=== PATIENT | male | born 1940 | race Caucasian/White ===

== ENCOUNTER → 2017-03-28 | Outpatient (CLI) | payer MEDICARE, OTHER | END | disposition home or self-care (01) | LOC: GMAJ 14:06 | PROVIDERS: ATTEND Family Medicine | DX: Z12.5 Encounter for screening for malignant neoplasm of prostate (principal) ==

== ENCOUNTER → 2017-07-11 | Outpatient (CLI) | payer MEDICARE, OTHER ==
--- NOTE | 2017-07-12 10:35 | RAD ---
EXAM DESCRIPTION: Hand,Left 3 Views CLINICAL HISTORY: 76 years Male, PAIN IN LEFT HAND COMPARISON: None. FINDINGS: 3 views of the left hand were obtained. Bony detail is obscured by artifact from superimposed splint material. There is an obliquely oriented, displaced and angulated third metacarpal diaphyseal fracture without definite intra-articular extension. One shaft width dorsal displacement of the distal fracture fragment. The carpometacarpal joints appear anatomically aligned. No additional displaced metacarpal or other left hand fracture. There is prominent posterior soft tissue swelling with one or 2 tiny calcifications versus foreign bodies in the posterior soft tissues. IMPRESSION: Limited exam due to artifact from superimposed splint material with a displaced and angulated left third metacarpal diaphyseal fracture. If possible, follow-up radiograph without splint material is recommended for further evaluation and to exclude the possibility of additional fracture. Prominent posterior soft tissue swelling with soft tissue calcification versus tiny foreign bodies at the same location. Electronically signed by: Rojelio Torres MD 07/12/2017 10:33 AM CDT
== END ==
LOC: RAD 09:02
PROVIDERS: ATTEND Orthopaedic Surgery
DX: M79.642 Pain in left hand (principal)

== ENCOUNTER → 2017-07-18 | Outpatient (CLI) | payer MEDICARE, OTHER ==
--- NOTE | 2017-07-18 11:41 | RAD ---
EXAM DESCRIPTION: Hand,Left 3 Views CLINICAL HISTORY: S62.225A COMPARISON: July 11, 2017 TECHNIQUE: AP, LATERAL, AND OBLIQUE FINDINGS: Three views of the left hand demonstrate an encircling fiberglass cast. Slightly displaced and foreshortened comminuted fracture of the proximal third metacarpal is evident. Very little change in alignment compared to prior study one week earlier is noted. Minimal angulation and modest dorsal displacement of the distal fragment and less than 1 cm of foreshortening is noted. IMPRESSION: 1. Comminuted fracture of the proximal third metacarpal with mild displacement and angulation and modest foreshortening slightly less than 1 cm. 2. Very little change from previous splinted examination July 11, 2017. Electronically signed by: Jone Moore MD 07/18/2017 11:39 AM CDT
== END | disposition home or self-care (01) ==
LOC: RAD 09:09
PROVIDERS: ATTEND Orthopaedic Surgery
DX: S62.22 Rolando's fracture (principal)

== ENCOUNTER → 2017-07-29 | Outpatient (CLI) | payer MEDICARE, OTHER ==
--- NOTE | 2017-07-29 13:27 | RAD ---
EXAM DESCRIPTION: Hand,Left 3 Views CLINICAL HISTORY: CLOSED FX OF METACARPAL BONE COMPARISON: July 18, 2017 TECHNIQUE: AP, LATERAL, AND OBLIQUE FINDINGS: An encircling fiberglass cast shows no change in alignment with very slight foreshortening of the proximal third metacarpal with a slightly comminuted fracture involving the base and proximal shaft of the bone. Modest volar displacement of the proximal fragment is evident on the oblique and lateral view. IMPRESSION: 1. Initially no change in the appearance of the proximal third metacarpal fracture with slight foreshortening and volar displacement of the proximal fragment. Electronically signed by: Jone Moore MD 07/29/2017 1:25 PM CDT
== END | disposition home or self-care (01) ==
LOC: RAD 09:54
PROVIDERS: ATTEND Orthopaedic Surgery
DX: S62.22 Rolando's fracture (principal)

== ENCOUNTER → 2017-08-05 | Outpatient (CLI) | payer MEDICARE, OTHER ==
--- NOTE | 2017-08-06 11:43 | RAD ---
EXAM DESCRIPTION: Hand,Left 3 Views CLINICAL HISTORY: 76 years,Male,CLOSED FX OF METACARPAL BONE COMPARISON: July 29, 2017 FINDINGS: The left hand demonstrates overlying splint obscures some detail. There is a oblique fracture to the proximal diaphysis of the third metacarpal. But the distal fragment displaced a cortex width to the ulnar aspect in almost a shaft width dorsally. It is stable. No evidence of bony bridging at this time.. Soft tissues appear unremarkable. IMPRESSION: Left hand third digit metacarpal demonstrates a oblique fracture to the proximal aspect of the diaphysis with moderate displacement which is stable. Electronically signed by: Moisés Arshad MD 08/06/2017 11:41 AM CDT
== END | disposition home or self-care (01) ==
LOC: RAD 09:57
PROVIDERS: ATTEND Nurse Practitioner Family
DX: S62.22 Rolando's fracture (principal); N30.01 Acute cystitis with hematuria

== ENCOUNTER → 2017-08-19 | Outpatient (CLI) | payer MEDICARE, OTHER ==
--- NOTE | 2017-08-19 14:40 | RAD ---
EXAM DESCRIPTION: Hand,Left 3 Views CLINICAL HISTORY: FX COMPARISON: August 05, 2017, July 18, 2017 TECHNIQUE: AP, LATERAL, AND OBLIQUE FINDINGS: Three views of the left hand were obtained through an encircling fiberglass cast. The bony margins and fracture line is less distinct with a suggestion of minimal callus formation. Mild ulnar and moderate dorsal offset of the distal third metacarpal fragment is essentially unchanged in comparison to studies back to June with an offset approaching one bone width at the proximal third metacarpal shaft level. New injuries or fractures are not apparent. IMPRESSION: 1. Partial healing of proximal third metacarpal shaft fracture with persistent ulnar and dorsal displacement of the distal fragment, unchanged from prior studies but approaching one bone width of displacement on the oblique view. Electronically signed by: Jone Moore MD 08/19/2017 2:39 PM CDT
== END | disposition home or self-care (01) ==
LOC: RAD 09:22
PROVIDERS: ATTEND Orthopaedic Surgery
DX: S62.303D Unspecified fracture of third metacarpal bone, left hand, subsequent encounter for fracture with routine healing (principal)

== ENCOUNTER → 2017-09-02 | Outpatient (CLI) | payer MEDICARE, OTHER ==
--- NOTE | 2017-09-02 13:01 | RAD ---
Frontal, lateral, and oblique views of the left hand. Indication:CLOSED FRACTURE OF METACARPAL BONE Comparison: August 19, 2017. IMPRESSION: A comminuted fracture of the left third metacarpal proximally is redemonstrated with stable dorsal displacement distal fracture fragment. There is mild callus formation along the radial margin fracture plane, however the majority of the fracture is ununited. 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 No new fracture. Mild soft tissue swelling dorsally. Electronically signed by: Toribio Marks MD 09/02/2017 12:59 PM CDT
== END | disposition home or self-care (01) ==
LOC: RAD 09:40
PROVIDERS: ATTEND Orthopaedic Surgery
DX: S62.303D Unspecified fracture of third metacarpal bone, left hand, subsequent encounter for fracture with routine healing (principal); X58.XXXA Exposure to other specified factors, initial encounter

== ENCOUNTER → 2017-09-23 | Outpatient (CLI) | payer MEDICARE, OTHER ==
--- NOTE | 2017-09-24 07:32 | RAD ---
EXAM DESCRIPTION: Hand,Left 3 Views CLINICAL HISTORY: 76 years,Male,CLOSED FX OF METACARPAL BONE COMPARISON: September 02, 2017 FINDINGS: The left hand demonstrates oblique comminuted fracture of the proximal to mid diaphysis of the third metacarpal which is in near anatomic alignment but with some mild shift of the distal fragment dorsally about half a shaft width. And some increasing callus formation since prior study. Displacement is unchanged. . Soft tissues appear unremarkable. No other acute findings. IMPRESSION: Healing comminuted oblique fracture to the proximal to mid diaphysis of the third metacarpal with some mild dorsal displacement of the distal fracture fragment which is stable Electronically signed by: Moisés Arshad MD 09/24/2017 7:31 AM [facility]
== END | disposition home or self-care (01) ==
LOC: RAD 09:26
PROVIDERS: ATTEND Orthopaedic Surgery
DX: S62.303D Unspecified fracture of third metacarpal bone, left hand, subsequent encounter for fracture with routine healing (principal)

== ENCOUNTER → 2017-10-21 | Outpatient (CLI) | payer MEDICARE, OTHER ==
--- NOTE | 2017-10-22 07:27 | RAD ---
EXAM DESCRIPTION: Hand,Left 3 Views CLINICAL HISTORY: 77 years Male, FX COMPARISON: September 23, 2017 FINDINGS: Again seen is an old healed or healing fracture involving the left third metacarpal diaphysis proximally with approximately one half shaft width posterior displaced into the distal fracture fragment, unchanged in appearance from September 23, 2017. Callus formation is noted at the fracture site, but the fracture plane remains visible. No new fracture or malalignment is seen. There is a tiny calcification versus radiopaque foreign body projecting over the soft tissues between the second and third metacarpal heads on the AP view, unchanged from the previous study. IMPRESSION: Moderately displaced, healed or healing third metacarpal fracture, unchanged from September 23, 2017. No new abnormality or other significant interval change. Electronically signed by: Rojelio Torres MD 10/22/2017 7:25 AM [facility]
== END ==
LOC: RAD 09:34
PROVIDERS: ATTEND Orthopaedic Surgery
DX: S62.303D Unspecified fracture of third metacarpal bone, left hand, subsequent encounter for fracture with routine healing (principal)